=== PATIENT | female | born 1970 | race Caucasian/White ===

== ENCOUNTER → 2020-04-07 10:38 | Outpatient (BNVA) | payer OTHER, SELFPAY | PROVIDERS: PCP Internal Medicine; Visit Provider Obstetrics & Gynecology | DX: Z76.89 Persons encountering health services in other specified circumstances (principal) ==

== ENCOUNTER → 2020-10-07 10:04 | Outpatient (BNVA) | payer OTHER, SELFPAY | PROVIDERS: PCP Internal Medicine; Visit Provider Nurse Practitioner Family ==

== ENCOUNTER 2021-02-03 12:22 | Outpatient (REF) | payer OTHER, SELFPAY ==
--- NOTE | ~2021-02-03 | MM_ITS ---
EXAMINATION: MM SCREENING DIGITAL BREAST TOMOSYNTHESIS, BILATERAL CLINICAL INFORMATION: Screening. Asymptomatic. The lifetime risk of breast cancer based on the Tyrer-Cuzick Model is 5%. COMPARISON: Outside mammography: 03/28/2019, 03/07/2018 ([place]); 09/13/2011 TECHNIQUE: Digital breast tomosynthesis is performed in both the craniocaudal and mediolateral oblique views along with computer-aided detection (CAD). Synthesized 2D images are generated from the tomosynthesis. Additional right MLO view is provided. FINDINGS: There are scattered areas of fibroglandular density (ACR BI-RADS breast composition Category b). Parenchymal pattern is similar to prior studies. There is no developing density or interval mass or architectural abnormality. No abnormal calcifications. The axilla and skin contours are unremarkable. MM/MM tomosynthesis screening BI IMPRESSION: No mammographic evidence of malignancy. ASSESSMENT: BI-RADS 1: Negative RECOMMENDATION: Routine annual mammography screening. This patient's information was entered into a reminder system with a target due date for their next mammogram.
== END 2021-02-03 12:23 | disposition home or self-care (01) ==
LOC: HO.MAMMO 12:22
PROVIDERS: Visit Provider Obstetrics & Gynecology
DX: Z12.31 Encounter for screening mammogram for malignant neoplasm of breast (principal)
CPT/HCPCS: 77063; 77067

== ENCOUNTER → 2021-03-02 13:06 | Outpatient (BNVA) | payer OTHER, SELFPAY | PROVIDERS: PCP Internal Medicine; Visit Provider Advanced Practice Midwife ==

== ENCOUNTER → 2022-08-15 14:08 | Outpatient (BNVA) | payer OTHER, SELFPAY | PROVIDERS: PCP Internal Medicine; Visit Provider Advanced Practice Midwife | DX: Z01.419 Encounter for gynecological examination (general) (routine) without abnormal findings (principal); N89.8 Other specified noninflammatory disorders of vagina; E66.01 Morbid (severe) obesity due to excess calories; H04.123 Dry eye syndrome of bilateral lacrimal glands; Z68.41 Body mass index [BMI] 40.0-44.9, adult | CPT/HCPCS: 99212 ==

== ENCOUNTER 2022-12-01 15:46 | Outpatient (REF) | payer OTHER, SELFPAY | END 2022-12-01 15:47 | disposition home or self-care (01) | LOC: HO.MAMMO 15:46 | PROVIDERS: PCP Internal Medicine; Visit Provider Advanced Practice Midwife | DX: Z12.31 Encounter for screening mammogram for malignant neoplasm of breast (principal) | CPT/HCPCS: 77063; 77067 ==

== ENCOUNTER → 2022-12-01 16:00 | Outpatient (BNV) | payer OTHER, SELFPAY | PROVIDERS: PCP Internal Medicine; Visit Provider Radiology Diagnostic Radiology | DX: Z12.31 Encounter for screening mammogram for malignant neoplasm of breast (principal) | CPT/HCPCS: 77063; 77067 ==

== ENCOUNTER 2023-08-22 14:49 | Outpatient (REF) | payer OTHER, SELFPAY | END 2023-08-22 14:50 | disposition home or self-care (01) | LOC: HO.LAB 14:49 | PROVIDERS: Visit Provider Advanced Practice Midwife | DX: R35.0 Frequency of micturition (principal) | CPT/HCPCS: 81003; 87086 ==

== ENCOUNTER 2023-08-22 14:49 | Outpatient (AMB) | payer OTHER, SELFPAY ==
--- NOTE | 2023-08-22 14:56 | MHC.OFFVIS ---
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 She is doing well with concerns: frequency of urine, she feels like something is stuck inside, Estrace did not help with this symptom. She requests a refill on the oxybutynin. Attempting to eat a healthy diet with calcium and vitamin D and stays active with exercise walks an hour/day. Currently sexually active. Denies any vaginal dryness or irritation. Last pap smear; 2018. Hysterectomy in 2014 for fibroids. Last mammogram; 2022. Colonoscopy is UTD. Denies any family history of breast, ovarian or colon cancer. [facility] Medical History Morbid obesity with BMI of 40.0-44.9, adult Heart burn Urinary incontinence Surgical History H/O: hysterectomy Social History Alcohol intake: current Alcohol intake frequency: a few times a week Patient Tobacco Use Status: Never used Tobacco Sexual orientation: Straight/Heterosexual Gender identity: Female Female Reproductive History Menstrual Menopause type: surgical Total pregnancies: 1 Full term: 1 Number of Living Children: 1 Date of last pap smear: 09/24/18 (neg pap and hpv) Date of Mammogram: 12/01/22 ([facility]) Review of Systems Const All systems reviewed & are unremarkable except as noted in HPI and below Reports as per HPI Eyes Reports no additional complaints ENT Reports no additional complaints Card Reports no additional complaints Resp Reports no additional complaints GI Reports as per HPI and Reports no additional complaints Reports as per HPI Musc Reports no additional complaints Skin/Breast Reports as per HPI Neuro Reports no additional complaints Psych Reports no additional complaints Endo Reports no additional complaints Ramin/Lymph Reports no additional complaints Aller/Immun Reports no additional complaints Physical Exam Vital Signs: Last Vital Signs BP 106/70 08/22/23 14:57 BMI result Body Mass Index 39.9 Const General: cooperative, healthy appearing, no acute distress, well developed and alert Orientation/consciousness: patient oriented x3 HEENT Head: Yes normal to inspection Eyes General: appearance normal, both eyes and all related structures Neck Neck: Yes normal visual inspection Thyroid: Thyroid normal Chest Chest palpation & inspection: normal inspection of the chest and other (no puckering, dimpling, peau de orange, retraction, discharge, masses) Breast/axilla inspection: normal inspection of the breasts Breast/axilla palpation: normal palpation of the breasts Resp Effort & Inspection: normal respiratory effort GI Inspection: Yes normal to inspection Palpation (GI): Soft to palpation Rectal Exam - Female: deferred General: Yes bladder normal to palpation External Female Exam: normal external appearance and normal appearance of the urethra Speculum Exam - Vagina: normal appearance of the vagina, normal palpation and normal vaginal discharge Speculum Exam - Cervix: normal appearance of the cervix and Cervix absent (Vaginal cuff no lesions or nodules) Bimanual exam- vagina & uterus: normal bimanual exam, normal palpation, bladder normal to palpation and uterus absent Bimanual Exam- Adnexa, other: no masses Skin General skin exam: no rashes or lesions noted Rashes: no rashes Neuro General: patient oriented x3 Cognition (Neuro): normal cognition Extrem General: Yes normal to inspection Psych Attitude: cooperative Thought process: Normal thought process present Results AMB Urinalysis, Automated UA Leukoctes 1 Polo/uL Last Edit by JOANNA Clark on 08/22/23 15:55 UA Nitrite Negative Last Edit by JOANNA Clark on 08/22/23 15:55 UA Urobilinogen 0 mg/dL Last Edit by JOANNA Clark on 08/22/23 15:55 UA Protein 0 mg/dL Last Edit by JOANNA Clark on 08/22/23 15:55 UA pH 6.0 Last Edit by JOANNA Clark on 08/22/23 15:55 UA Blood 3 Oren/uL Last Edit by JOANNA Clark on 08/22/23 15:55 UA Specific Chauncey 1.015 Last Edit by JOANNA Clark on 08/22/23 15:55 UA Ketone Positive Last Edit by JOANNA Clark on 08/22/23 15:55 trace Leanna Lindsay 08/22/23 15:55 UA Bilirubin 0 mg/dL Last Edit by Leanna EnamoradoJOANNA hui on 08/22/23 15:55 UA Glucose 0 mg/dL Last Edit by Leanna Lindsay YOSVANYJose L on 08/22/23 15:55 Assessment & Plan Assessment & Plan (1) Encounter for well woman exam with routine gynecological exam: Code(s): Z01.419 - Encounter for gynecological examination (general) (routine) without abnormal findings (2) Vaginal dryness: Code(s): N89.8 - Other specified noninflammatory disorders of vagina (3) Urinary frequency: Code(s): R35.0 - Frequency of micturition Plan Discussed: Current recommendations for pap smears per ASCCP guidelines. Breast awareness, periodic self breast exams and yearly mammogram. Maintain a healthy lifestyle, well balanced diet including Calcium 1,200 mg and Vitamin D 600 IU daily, and routine exercise. Restart Estrace as needed, titrating dose discussed. Recommended trying some silicone rings/spacers for her partner and positioning to avoid deep penetration due to the shortening of the vaginal cuff canal in menopause. [facility] website information provided. Discussed risk with Estrace cream, contraindicated with any diagnosis of breast cancer, report any breast lumps juliet. Continue oxybutynin t.i.d. Plan urine dip today revealed hematuria specimen sent to the lab for culture. Patient verbalizes understanding and agrees to the plan of care. She was given opportunity to ask questions and all questions were answered to the best of my ability. RTO in 1 year for annual breakfast attendant exam. This note is constructed using voice recognition software. While every effort has been made to ensure accuracy, account services coordinator errors may have been included. Medications: Refilled estradiol 0.01%(0.1mg/gram) restart nightly x 2wks, then every other night x 2wks, then continue using twice a week. 0.5 appful vaginal 2XW 1 month 42.5 grams 4RF oxybutynin chloride 5 mg PO TID 90 tabs 12RF Coding Level of Care Code Est Pt Prev Care 40-64y(03214) Diagnoses Encounter for well woman exam with routine gynecological exam Z01.419 Vaginal dryness N89.8 Urinary frequency R35.0
[2023-08-22 14:57] VITALS: BP 106/70; BMI 39.9
== END 2023-08-22 15:52 | disposition home or self-care (01) ==
PROVIDERS: Visit Provider Advanced Practice Midwife
DX: Z01.419 Encounter for gynecological examination (general) (routine) without abnormal findings (principal); N89.8 Other specified noninflammatory disorders of vagina; R35.0 Frequency of micturition
CPT/HCPCS: 99396

== ENCOUNTER 2023-12-07 15:49 | Outpatient (REF) | payer OTHER, SELFPAY ==
--- NOTE | ~2023-12-07 | MM_ITS ---
EXAMINATION: MM SCREENING DIGITAL BREAST TOMOSYNTHESIS, BILATERAL CLINICAL INFORMATION: Screening. Asymptomatic. COMPARISON: Mammography: This study is compared with prior exams dating back to 2019. TECHNIQUE: Digital breast tomosynthesis is performed in both the craniocaudal and mediolateral oblique views along with computer-aided detection (CAD). Synthesized 2D images are generated from the tomosynthesis. FINDINGS: The breasts are almost entirely fatty (ACR BI-RADS breast composition Category a). There are no significant masses, abnormal calcifications, or other abnormalities. MM/MM tomosynthesis screening BI IMPRESSION: No mammographic evidence of malignancy. ASSESSMENT: BI-RADS BI-RADS 1 - Negative RECOMMENDATION: Routine annual mammography screening. 1 year F/U This examination should not preclude the clinical evaluation of a suspicious palpable abnormality. This patient's information was entered into a reminder system with a target due date for their next mammogram. Electronically signed by: Chanda Cormier MD 01/05/2024 04:05 PM EDT
== END 2023-12-07 15:50 | disposition home or self-care (01) ==
LOC: HO.MAMMO 15:49
PROVIDERS: PCP Internal Medicine; Visit Provider Internal Medicine
DX: Z12.31 Encounter for screening mammogram for malignant neoplasm of breast (principal)
CPT/HCPCS: 77063; 77067

== ENCOUNTER → 2023-12-07 16:00 | Outpatient (BNV) | payer OTHER, SELFPAY | PROVIDERS: PCP Internal Medicine; Visit Provider Radiology Diagnostic Radiology | DX: Z12.31 Encounter for screening mammogram for malignant neoplasm of breast (principal) | CPT/HCPCS: 77063; 77067 ==

== ENCOUNTER 2024-11-06 15:53 | Outpatient (AMB) | payer OTHER, SELFPAY ==
--- OUTSIDE RECORDS SUMMARY | 2024-06-12 09:00 | XMS_ITS ---
Author Organization [facility] [address] Address [address] [place] [address] Care Team Providers Care Bin Worker Name Role Phone ROB STEIN Unavailable [phone] REASON FOR VISIT bp f/u Encounters Encounter Location Date Provider Diagnosis [facility] [address] [address] 06/12/2024 ROB STEIN Plan Of Treatment No Information Progress Notes * Dima HARMANOB:1970 ( 54 yo F)Acc No.[id number]:06/12/2024 Progress Notes Patient: Enedina ARMENDARIZ Provider: Elvis STEIN PA-C :1970 A ge:54 Y S ex:Female Date:06/12/2024 Address: [address], [place] Subjective: * Chief Complaints: * 1 . Bp f/u. * Medical History: Objective: * Vitals: Assessment: Plan: * Treatment: * Images: Billing Information: * Visit Code: * Procedure Codes: Care Plan Details* * Electronic signature of DOUGLAS STEIN PA-C on 11/06/2024 at 04:18 PM EDT Sign off status: Pending * Provider: Elvis STEIN PA-C Date: 06/12/2024 Generated for Palak cummings/Farenee/eTransmitting on: 0 11/06/2024 04:18 PM EDT
--- NOTE | 2024-11-06 15:56 | A.OFFVIS_ITS ---
Vital Signs 11/06/24 16:00 Height 5 ft 1 in Weight 193 lb BMI 36.5 BP 106/72 Blood Pressure Location Rt brachial Position Sitting Intake Visit Reasons: Annual Intake Note: NO CONCERNS,DOES NOT WANT STD Manager Of Financial Required: No Information Interpreted: clinical only Accompanied by: Self / Same As Patient Allergies mold Allergy (Verified 11/06/24 15:57) mild Medication List - Last Reconciled 11/06/24 by Angela Armstrong LPN estradiol 0.01%(0.1mg/gram) 0.5 appful vaginal 2XW 1 month oxybutynin chloride 5 mg PO TID Is last menstrual period known: Yes Last menstrual period: 11/06/09 Post menopausal: No Patient : No Followed by:: Angela Armstrong LPN Do you need a note to return to daycare/school/sports/work: No HPI Comments Details: 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 Needs refill on Oxybuytin, stopped her Estr ana 6 months ago she did not feel she needed it. Currently sexually active. Denies any vaginal dryness or irritation. STI testing offered; she declines. Attempting to eat a healthy diet with calcium and vitamin D and stays active with exercise. Hysterectomy due to fibroids. Last mammogram; 2023. Colonoscopy is UTD. Denies any family history of breast, ovarian or colon cancer. [facility] Medical History (Updated 11/06/24 @ 16:20 by Jessie Lopez CNM) Vaginal atrophy Morbid obesity with BMI of 40.0-44.9, adult Heart burn Urinary incontinence Surgical History H/O: hysterectomy Social History Alcohol intake: current Alcohol intake frequency: a few times a week Patient Tobacco Use Status: Never used Tobacco Sexual orientation: Straight/Heterosexual Gender identity: Female Female Reproductive History Menstrual Age of Menarche: 9 Date of last menstrual period: 11/06/09 Menopause type: surgical Date of menopause: 11/06/09 Age of menopause: 39 Total pregnancies: 1 Number of Living Children: 1 Date of last pap smear: 09/24/18 History of abnormal pap smear: No Date of Mammogram: 12/07/23 History of abnormal mammogram: No Review of Systems Const All systems reviewed & are unremarkable except as noted in HPI and below Reports as per HPI Eyes Reports no additional complaints ENT Reports no additional complaints Card Reports no additional complaints Resp Reports no additional complaints GI Reports as per HPI and Reports no additional complaints Reports as per HPI Musc Reports no additional complaints Skin/Breast Reports as per HPI Neuro Reports no additional complaints Psych Reports no additional complaints Endo Reports no additional complaints Ramin/Lymph Reports no additional complaints Aller/Immun Reports no additional complaints Physical Exam Vital Signs: Last Vital Signs BP 106/72 11/06/24 16:00 BMI result Body Mass Index 36.5 Const General: cooperative, healthy appearing, no acute distress, well developed and alert Orientation/consciousness: patient oriented x3 HEENT Head: Yes normal to inspection Eyes General: appearance normal, both eyes and all related structures Neck Neck: Yes normal visual inspection Thyroid: Thyroid normal Chest Chest palpation & inspection: normal inspection of the chest and other (no puckering, dimpling, peau de orange, retraction, discharge, masses) Breast/axilla inspection: normal inspection of the breasts Breast/axilla palpation: normal palpation of the breasts Resp Effort & Inspection: normal respiratory effort GI Inspection: Yes normal to inspection Palpation (GI): Soft to palpation Rectal Exam - Female: deferred General: Yes bladder normal to palpation External Female Exam: normal external appearance and normal appearance of the urethra Speculum Exam - Vagina: normal appearance of the vagina, normal palpation, normal vaginal discharge and vagina atrophic Speculum Exam - Cervix: normal appearance of the cervix and Cervix absent (Vaginal cuff no lesions or nodules) Bimanual exam- vagina & uterus: normal bimanual exam, normal palpation, bladder normal to palpation and uterus absent Bimanual Exam- Adnexa, other: no masses Skin General skin exam: no rashes or lesions noted Rashes: no rashes Neuro General: patient oriented x3 Cognition (Neuro): normal cognition Extrem General: Yes normal to inspection Psych Attitude: cooperative Thought process: Normal thought process present Assessment & Plan Assessment & Plan (1) Encounter for well woman exam with routine gynecological exam: Code(s): Z01.419 - Encounter for gynecological examination (general) (routine) without abnormal findings Category: Medical Plan: Discussed: Current recommendations for pap smears per ASCCP guidelines. Breast awareness, periodic self breast exams and yearly mammogram. Maintain a healthy lifestyle, well balanced diet including Calcium 1,200 mg and Vitamin D 600 IU daily, and routine exercise. Oxybutynin refills sent in. Patient verbalizes understanding and agrees to the plan of care. She was given opportunity to ask questions and all questions were answered to the best of my ability. RTO in 1 year for annual auctioneer automobile exam. This note is constructed using voice recognition software. While every effort has been made to ensure accuracy, motel front desk attendant errors may have been included. (2) Vaginal atrophy: Code(s): N95.2 - Postmenopausal atrophic vaginitis Category: Medical Plan Counseled regarding the benefits of estrogen for atrophic vaginitis and urological conditions. Recommended restarting due to symptoms on exam, medication use and titration reviewed. Refill sent in. Advised to do self- breast exam and if any breast lump to report to the office as soon as possible for evaluation and discontinue the cream. The patient expressed understanding and agreement with the plan of care. All of her questions and concerns were addressed to the best of my ability. Medications: New estradiol 0.01%(0.1mg/gram) (Estrace) use nightly for two weeks, then twice a week 1 g vaginal 2XW 42.5 grams 2RF Refilled oxybutynin chloride 5 mg PO TID 90 tabs 12RF Discontinued estradiol 0.01%(0.1mg/gram) restart nightly x 2wks, then every other night x 2wks, then continue using twice a week. Discontinued Reason: Duplicate 0.5 appful vaginal 2XW 1 month 42.5 grams 4RF Coding Level of Care Code Est Pt Prev Care 40-64y(69978) Diagnoses Encounter for well woman exam with routine gynecological exam Z01.419 Vaginal atrophy N95.2
[2024-11-06 16:00] VITALS: BP 106/72; BMI 36.5
--- OUTSIDE RECORDS SUMMARY | 2024-11-06 16:18 | XMS_ITS | Clinical Summary ---
Author Organization [address] Address [address] [place] [phone] Phone Care Team Providers Care Keg Raiser Name Role Phone Kita Sepulveda Primary Care Provider + Allergies No known active allergies Medications oxyBUTYnin (DITROPAN) 5 mg tablet Active mv,deep,min/iron/ folic acid/lut (COMPLETE MULTI ORAL) Take 1 tablet by mouth 1 (one) time each day. Active Active Problems Problem Noted Date Diagnosed Date Dysmenorrhea 04/13/2024 Obstructive sleep apnea 04/06/2018 Overview (04/13/2024): [facility] Home Polysomnogram: Date 04/01/2018; AHI 6, Unclassified apneas 0; Obstructive apneas 0; Central apneas 1; Mixed apneas 0; hypopneas 28; average oxygen saturation 95% (lowest 80% with saturations <88% for 5% or more of study) - Obstructive Sleep Apnea - mild; mostly hypopneas; with sleep related hypoventilation by 2018 home polysomnogram. Rotator cuff tendonitis 11/11/2014 Morbid obesity (CMS/HCC V24, CMS/HCC V28) 2012 Constipation 02/07/2013 GERD (gastroesophageal reflux disease) 3 Overview (04/13/2024): Hx of H pylori infection s/p treatment, follows with GI. Dr[facility]. Immunizations Name Administration Dates Next Due Tdap Tetanus diptheria acell ular pertussis (Boostrix; Adacel) 7yo and older 06/03/2022,10/23/2013 Surgical History Surgery Date Site/Laterality Comments SECTION PROCEDURE: HISTORICAL DELIVERY ROBOTIC ASSISTED HYSTERECTOMY 04/08/14 PROCEDURE: HISTORICAL ROBOTIC HYSTERECTOMY WITH OR WITHOUT BSO; COMMENT: Dr. Dill; TL[facility], bilateral salpingectomy. Medical History Medical History Date Comments GERD (gastroesophageal reflux disease) 3 DX:GERD (gastroesophageal reflux disease); COMMENT: Hx of H pylori infection s/p treatment, follows with GI. Dr[facility]. Fibroid uterus DX:Fibroid uteru s Dysmenorrhea DX:Dysmenorrhea Obesity DX:Obesity Anxiety DX:Anxiety Family History Medical History Relation Name Comments Other: over active thyroid Aunt Other: no info on father's side of family Father Stroke Maternal Grandfather at age 65 Hypertension Mother Thyroid disease Mother low thyroid Breast cancer Neg Hx Relation Name Status Comments Aunt Father Maternal Grandfather Mother Social History Tobacco Use Types Packs/Day Years Used Date Smoking Tobacco: Never Smokeless Tobacco: Never Alcohol Use Standard Drinks/Week Comments Yes 0.8 (1 standard drink = 0.6 oz p ure alcohol) Interpersonal Safety Answer Date Record ed Physical Abuse 07/08/2024 Verbal Abuse 07/08/2024 Comments No Sex and Gender Information Value Date Recorded Sex Assigned at Female 07/07/2024 9:27 AM EDT Legal Sex Female 6:09 PM EST Gender Identity Female 07/07/2024 9:27 AM EDT Sexual Orientation Straight 07/07/2024 9: 27 AM EDT Obstetrics History Last Filed Vital Signs Vital Sign Reading Time Taken Comments Blood Pressure 137/89 07/08/2024 2:26 PM EDT Pulse 66 07/08/2024 2:26 PM EDT Temperature 35.8 C (96.5 F) 07/08/2024 1:25 PM EDT Respiratory Rate 20 07/08/2024 2:26 PM EDT Oxygen Saturation 98% 07/08/2024 2:26 PM EDT Inhaled Oxygen Concentration - - Weight 79.4 kg (175 lb) 06/30/2024 3:00 PM EDT Height 154.9 cm (5' 1 ) 06/30/2024 3:00 PM EDT Body Mass Index 33.07 06/30/2024 3:00 PM EDT Plan of Treatment Health Maintenance Due Date Last Done Comments Hepatitis B Vaccines (1 of 3 - 19+ 3-dose series) 1988 Cervical Cancer Screening: P ap Smear 03/07/2019 03/07/2016, 03/10/2013 Pneumococcal Vaccine: 50+ Years (1 of 1 - PCV) 2019 Zoster Vaccines (1 of 2) 2019 Breast Cancer Screening 03/28/2021 03/28/20 19, 03/07/2018, 10/06/2016 Depression Screening 04/01/2022 HIV Screening 04/01/2022 Hepatitis C Screening 04/01/2022 Social Influencers of Health Screening 04/01/2022 COVID-19 Vaccine (3 - 2023-2 5 season) 2023 10/02/2020, 09/11/2020 Influenza Vaccine (#1) 2024 Cholesterol Screening (Lipid Panel) 04/11/2029 04/11/2024, 03/07/2018 DTaP,Tdap,and Td Vaccines (3 - Td or Tdap) 06/03/2032 06/03/2022, 10/23/2013 Colorectal Cancer Screening: Colonoscopy 07/08/2034 07/08/2024 HIB Vaccines Aged Out No longer eligi ble based on patient's age to complete this topic HPV Vaccines Aged Out No longer eligi ble based on patient's age to complete this topic Hepatitis A Vaccines Aged Out No long er eligible based on patient's age to complete this topic IPV Vaccines Aged Out No longer eligi ble based on patient's age to complete this topic MMR Vaccines Aged Out No longer eligi ble based on patient's age to complete this topic Meningococcal ACWY Vaccine Aged Out N o longer eligible based on patient's age to complete this topic Meningococcal B Vaccine Aged Out No l onger eligible based on patient's age to complete this topic RSV Immunization Patients Under 20 months Aged Out No longer eligible b ased on patient's age to complete this topic Varicella Vaccines Aged Out No longer eligible based on patient's age to complete this topic Procedures Procedure Name Priority Date/Time Associated Diagnosis Comments COLONOSCOPY Routine 07/08/2024 2:05 PM EDT Colon cancer screening LIPID PANEL WITH REFLEX TO DIRECT LDL Routine 04/11/2024 10:42 AM EST Routine medical exam Vitamin D deficiency disease Screening for lipoid disorders Screening for thyroid disorder Screening for diabetes mellitus SCR MAMMO BI INCL CAD Routine 03/28/2019 3:41 PM EST Encounter for other screening for malignant neoplasm of breast HM PAP SMEAR Routine 03/07/2016 from Last 3 Months or Most Recently Relevant to Health Maintenance Results * COLONOSCOPY Anesthesia - MAC; [facility] ENDOSCOPY (07/08/2024 2:05 PM EDT) Anatomical Region Laterality Modality Endoscopy 07/08/2024 1:43 PM EDT Impressions 07/08/2024 2:06 PM EDT - Diverticulosis in the left colon. - The examination was otherwise normal on direct and retroflexion views. - No specimens collected. Recommendation: - Patient has a contact number available for emergencies. The signs and symptoms of potential delayed complications were discussed with the patient. Return to normal activities tomorrow. Written discharge instructions were provided to the patient. - Resume previous diet. - Continue present medications. - Repeat colonoscopy in 10 years for screening purposes. Narrative 07/08/2024 2:06 PM EDT [facility] GI Patient Name: Enedina Harman Procedure Date: 07/08/2024 1:43 PM Date of : 1970 Age: 54 Room: ROOM 16 Gender: Female Note Status: Finalized Attending MD: Ron Teran MD, Procedure Date No Time: 07/08/2024 Procedure: Colonoscopy Indications: Screening for colorectal malignant neoplasm Providers: Ron Teran MD Referring MD: Ron Teran MD Medicines: Monitored Anesthesia Care Complications: No immediate complications. Estimated Blood Loss: Estimated blood loss: none. Procedure: After I obtained informed consent, the scope was passed under direct vision. Throughout the procedure, the patient's blood pressure, pulse, and oxygen saturations were monitored continuously. The Olympus Pediatric Colonoscope was introduced through the anus and advanced to the cecum, identified by appendiceal orifice and ileocecal valve. The colonoscopy was performed without difficulty. The patient tolerated the procedure well. The quality of the bowel preparation was good. Findings: A few medium-mouthed diverticula were found in the left colon. The exam was otherwise without abnormality on direct and retroflexion views. Procedure Code(s): --- Professional --- G0121, Colorectal cancer screening; colonoscopy on individual not meeting criteria for high risk Diagnosis Code(s): --- Professional --- K57.30, Diverticulosis of large intestine without perforation or abscess without bleeding Z12.11, Encounter for screening for malignant neoplasm of colon CPT copyright 2020 [employer]. All rights reserved. The codes documented in this report are preliminary and upon postdoctoral research associate review may be revised to meet current compliance requirements. MD Ron Manjarrez MD 07/08/2024 2:06:25 PM This report has been signed electronically.Ron Teran MD Number of Addenda: 0 Note Initiated On: 07/08/2024 1:43 PM Scope In: Scope Out: Endoscopy Department at [facility] - [address] [place] [id number] Procedure Note Ron Teran MD - 07/08/2024 [facility] GI Patient Name: Enedina Harman Procedure Date: 07/08/2024 1:43 PM Date of : 1970 Age: 54 Room: ROOM 16 Gender: Female Note Status: Finalized Attending MD: Ron Teran MD, Procedure Date No Time: 07/08/2024 Procedure: Colonoscopy Indications: Screening for colorectal malignant neoplasm Providers: Ron Teran MD Referring MD: Ron Teran MD Medicines: Monitored Anesthesia Care Complications: No immediate complications. Estimated Blood Loss: Estimated blood loss: none. Procedure: After I obtained informed consent, the scope was passed under direct vision. Throughout theprocedure, the patient's blood pressure, pulse, and oxygen saturations were monitored continuously. TheOlympus Pediatric Colonoscope was introduced through theanus and advanced to the cecum, identified byappendiceal orifice and ileocecal valve. The colonoscopy was performed without difficulty. The patient tolerated the procedure well. The quality of the bowel preparation was good. Findings: A few medium-mouthed diverticula were found in the left colon. The exam was otherwise without abnormality ondirect and retroflexion views. Procedure Code(s): --- Professional --- G0121, Colorectal cancer screening; colonoscopy on individual not meeting criteria for high risk Diagnosis Code(s): --- Professional --- K57.30, Diverticulosis of large intestine without perforation or abscess without bleeding Z12.11, Encounter for screening for malignantneoplasm of colon CPT copyright 2020 [employer]. All rights reserved. The codes documented in this report are preliminary and upon postdoctoral research associate reviewmay be revised to meet current compliance requirements. MD Ron Manjarrez MD 07/08/2024 2:06:25 PM This report has been signed electronically.Ron Teran MD Number of Addenda: 0 Note Initiated On: 07/08/2024 1:43 PM Scope In: Scope Out: Endoscopy Department at [facility] - [address] [place] [id number] IMPRESSION: - Diverticulosis in the left colon. - The examination was otherwise normal on directand retroflexion views. - No specimens collected. Recommendation: - Patient has a contact number available for emergencies. The signs and symptoms of potential delayed complications were discussed with thepatient. Return to normal activities tomorrow. Written discharge instructions were provided to thepatient. - Resume previous diet. - Continue present medications. - Repeat colonoscopy in 10 years for screening purposes. Ron Teran MD GI~PROCEDURE ORDERABLES Final R esult * (ABNORMAL) Lipid panel with reflex to direct LDL (04/11/2024 10:42 AM EST) Cholesterol 201(H) 0 - 200 mg/dL LAB CHEMISTRY METHOD 04/11/2024 2:15 PM EST [facility] Triglycerides 65 0 - 150 mg/dL LAB CHEMISTRY METHOD 04/11/2024 2:15 PM EST [facility] HDL 71 >=40 mg/dL LAB CHEMISTRY METHOD 04/11/2024 2:15 PM EST [facility] LDL Calculated 117(H) 0 - 100 mg/dL LAB CHEMISTRY METHOD 04/11/2024 2:15 PM EST [facility] VLDL Cholesterol Deep 13 mg/dL LAB CHEMISTRY METHOD 04/11/2024 2:15 PM EST [facility] Non HDL Chol. (LDL+VLDL) 130 <145 mg/dL LAB CHEMISTRY METHOD 04/11/2024 2:15 PM EST [facility] Chol/HDL Ratio 2.8 0.0 - 4.4 LAB CHEMISTRY METHOD 04/11/2024 2:15 PM EST [facility] Blood Venous blood specimen / Unknown Venipuncture / Unknown 04/11/2024 10:42 AM EST 04/11/2024 12:31 PM EST us Kita ALFONSO LAB BLOOD ORDERABLES Fin al Result [facility] [address] [place] [address], * SCR MAMMO BI INCL CAD (03/28/2019 3:41 PM EST) Anatomical Region Laterality Modality Radiographic Esthela ging 03/07/2018 5:00 PM EST Narrative 03/30/2019 3:20 PM EST This is a summary report. The complete report is available in the patient's medical record. If you cannot access the medical record, please contact the sending organization for a detailed fax or copy. Exam: Screening mammogram Findings: Digital bilateral full-field screening mammography is performed and interpreted with the aid of computer-aided detection. Comparison is made with 03/07/2018 and as far back as 07/18/2013. Breast parenchyma is composed of scattered fibroglandular densities. No new suspicious mass, architectural distortion, or suspicious calcifications. Impression: No mammographic evidence of malignancy. BI-RADS 1 - negative [] 5 year breast cancer risk assessment 0.8 % Lifetime breast cancer risk assessment 8.2 % Breast cancer risk category Low (<15%) Procedure Note Elimra Prather MD - 04/11/2022 This is a summary report. The complete report is available in thepatient's medical record. If you cannot access the medical record, pleasecontact the sending organization for a detailed fax or copy. Exam: Screening mammogram Findings: Digital bilateral full-field screening mammography is performedand interpreted with the aid of computer-aided detection. Comparison ismade with 03/07/2018 and as far back as 07/18/2013. Breast parenchyma is composed of scattered fibroglandular densities. Nonew suspicious mass, architectural distortion, or suspiciouscalcifications. Impression: No mammographic evidence of malignancy. BI-RADS 1 - negative [] 5 year breast cancer risk assessment 0.8 % Lifetime breast cancer risk assessment 8.2 % Breast cancer risk category Low (<15%) Kal Dill MD IMG XR PROCEDURES Final Result * Pap Smear (03/07/2016) Pap smear no interpretation , abstracted Historical Provider HEALTH MAINTENANCE Final Result from Last 3 Months or Most Recently Relevant to Health Maintenance [place] [phone] [employer] Care Teams Keg Raiser Relationship Specialty Start Date End Date Kita Sepulveda PA [address] [place] [phone] PCP - General 05/21/24
== END 2024-11-06 16:19 | disposition home or self-care (01) ==
LOC: HO.HWS 15:53
PROVIDERS: PCP Internal Medicine; Visit Provider Advanced Practice Midwife
DX: Z01.419 Encounter for gynecological examination (general) (routine) without abnormal findings (principal); N95.2 Postmenopausal atrophic vaginitis
CPT/HCPCS: 99396; 99459

== ENCOUNTER 2025-03-05 16:19 | Outpatient (REF) | payer OTHER, SELFPAY ==
--- OUTSIDE RECORDS SUMMARY | 2024-03-11 09:15 | XMS_ITS ---
Author Organization [facility] [address] Address [address] [place] [address] Care Team Providers Care Cut Off Sawyer Name Role Phone ROB STEIN Unavailable [phone] Encounters Encounter Location Date Provider Diagnosis [facility] [address] [place] [address] 03/11/2024 ROB STEIN Plan Of Treatment Next Appt Details Provider Name:ROB Morales, 2025 08:00:00 AM, [address], [address], [place], [address], Progress Notes * KIMANIDimaOB:1970 ( 54 yo F)Acc No.[id number]:03/11/2024 Progress Notes Patient: Enedina Chaves Provider: Elvis STEIN PA-C :1970 A ge:53 Y S ex:Female Date:03/11/2024 Address: [address], [id number] * Electronic signature of DOUGLAS STEIN PA-C on 03/05/2025 at 06:50 PM EST Sign off status: Pending * Provider: Elvis STEIN PA-C Date: 05/11/2023 Generated for Palak cummings/Jimmy/eTransmitting on: 05/05/2024 06:50 PM EST
--- OUTSIDE RECORDS SUMMARY | 2024-06-12 08:00 | XMS_ITS ---
Author Organization [facility] [address] Address [address] [place] [address] Care Team Providers Care Java Technical Manager Name Role Phone ROB STEIN Unavailable [phone] REASON FOR VISIT bp f/u Encounters Encounter Location Date Provider Diagnosis [facility] [address] [place] [address] 06/12/2024 ROB STEIN Plan Of Treatment Next Appt Details Provider Name:ROB Morales, 2025 08:00:00 AM, [address], [address], [place], [address], Progress Notes * Dima HARMANOB:1970 ( 54 yo F)Acc No.[id number]:06/12/2024 Progress Notes Patient: Enedina Chaves Provider: Elvis STEIN PA-C :1970 A ge:54 Y S ex:Female Date:06/12/2024 Address: [address] [id number] Subjective: * Chief Complaints: * B p f/u Care Plan Details* * Electronic signature of DOUGLAS STEIN PA-C on 03/05/2025 at 06:50 PM EST Sign off status: Pending * Provider: Elvis STEIN PA-C Date: 0 06/12/2024 Generated for Palak cummings/Jimmy/eTransmitting on: 1 05/05/2024 06:50 PM EST
--- OUTSIDE RECORDS SUMMARY | 2025-03-05 18:50 | XMS_ITS | Patient Health Record ---
Author Organization [facility] [address] Address [address] [place] [address] Care Team Providers Care Merchandise Flow Associate Name Role Phone ROB STEIN [phone] Allergies Allergen (clinical drug ingredient) Drug/Non Drug Allergy documented on EMR Reaction Allergy Type Onset Date Status Mold Unknown Allergy Active Results Component Value Reference Range Flag Notes CBC WITH AUTO DIFFERENTIAL Reviewed date:04/11/2024 01:59:42 PM Interpretation: Performing Lab: Notes/Report: WBC 5.6 4.8-10.8 K/mcL RBC 4.10 3.80-4.80 M/mcL Hemoglobin 12.7 11.5-16.0 g/dL Hematocrit 39.3 35.0-47.0 % MCV 94.9 79.0-98.0 FL MCH 30.7 27.0-32.0 pcg MCHC 32.3 32.0-37.0 g/dL RDW 13.5 11.0-15.0 % Platelets 213 130-400 K/mcL MPV 10.1 7.0-11.0 FL NRBC 0.0 <1.0 % NRBC Absolute 0.00 <0.10 K/mcL Neutrophils Relative 49.2 Lymphocytes Relative 39.7 Monocytes Relative 6.8 Eosinophils Relative 2.5 Basophils Relative 1.4 Immature Granulocytes Relative 0.4 Neutrophils Absolute 2.77 1.50-7.00 K/mcL Lymphocytes Absolute 2.23 1.00-5.00 K/mcL Monocytes Absolute 0.38 0.20-1.00 K/mcL Eosinophils Absolute 0.14 0.00-0.50 K/mcL Basophils Absolute 0.08 0.00-0.20 K/mcL Immature Granulocytes Absolute 0.02 0.00-0.03 K/mcL LIPID PANEL WITH REFLEX TO D IRECT LDL Reviewed date:04/11/2024 02:27:46 PM Interpretation: Performing Lab: Notes/Report: Cholesterol 201 0-200 mg/dL H Triglycerides 65 0-150 mg/dL HDL 71 >=40 mg/dL LDL Calculated 117 0-100 mg/dL H VLDL Cholesterol Brian 13 Non HDL Chol. (LDL+VLDL) 130 <145 mg/dL Chol/HDL Ratio 2.8 0.0-4.4 VITAMIN D 25 HYDROXY Reviewed date:04/11/2024 02:08:03 PM Interpretation: Performing Lab: Notes/Report: Vit D, 25-Hydroxy 33.1 30.0-80.0 ng/mL COMPREHENSIVE METABOLIC PANE L Reviewed date:04/11/2024 02:27:40 PM Interpretation: Performing Lab: Notes/Report: Sodium 140 133-145 mmol/L Potassium 4.8 3.5-5.5 mmol/L Chloride 108 96-110 mmol/L CO2 30 21-32 mmol/L Anion Gap 2 3-11 L Glucose 72 70-100 mg/dL BUN 22 5-25 mg/dL Creatinine 0.73 0.50-1.10 mg/dL eGFR 98 >=60 mL/min/1.73m2 Calcul ation based on the?Chronic Kidney Disease Epidemiology Collaboration (CKD-EPI) equation refit?without adjustment for race. BUN/Creatinine Ratio 30.1 Calcium 9.0 8.5-10.5 mg/dL AST (SGOT) 19 10-42 unit/L ALT (SGPT) 24 10-60 unit/L Alkaline Phosphatase 46 42-121 unit/L Total Protein 6.4 6.0-8.0 g/dL Albumin 3.8 3.2-5.0 g/dL Total Bilirubin 0.7 0.0-1.4 mg/dL THYROID STIMULATING HORMONE WITH REFLEX TO FREE T4 AND FREE T3 Reviewed date:04/11/2024 02:07:59 PM Interpretation: Performing Lab: Notes/Report: TSH 1.27 0.40-4.00 mcIU/mL HEMOGLOBIN A1C Reviewed date:04/12/2024 09:00:28 AM Interpretation: Performing Lab: Notes/Report: Hemoglobin A1C 4.9 <6.5 % Mean Bld Glu Estim. 94 Reason For Referral Reason Ena GI; colonosc opy Diagnosis 1 Colon cancer screeni (Z12.11) Referral Organization [facility] [address] Referring Provider First Name ROB Referring Provider Last Name EMIL Referring Provider Speciality Preventive Medicine Referred Provider Chacho Sarah Referred Provider Specialty Gastroentero logy General Notes [phone] , (p) [phone], (f) [phone] Clinical Notes Brunilda Zuniga 03:36:28 PM > referral sentKiet Redena 05/28/2024 02:54:03 PM > Scheduled for 07/08/24. Pt aware Referral Priority Routine Medications Medication SIG (Take, Route, Frequency, Duration) Notes Start Date End Date Status Multi Complete - Capsule as directed Orally Active oxyBUTYnin Chloride 5 MG Tablet 1 tablet Orally Once a day A ctive CeleBREX 100 MG Capsule 1 capsule with f ood Orally twice daily; Duration: 15 days 06/02/2024 Active Social History Social History Drugs/Alcohol: Social Info Question Answer Notes Alcohol Screen (Audit-C) Did you have a drink containing alcohol in the past year? Yes How often did you have a drink containing alcohol in the past year? 4 or more times a week (4 points) How many drinks did you have on a typical day when you were drinking in the past year? 5 or 6 drinks (2 points) How often did you have 6 or more drinks on one occasion in the past year? 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 ETOH Use: 1-2 drinks/week Tob Use: Denies Recreational drug Use: Denies Problems Problem Type SNOMED Code ICD Code Onset Dates Problem Status W/U Status Risk Notes Problem Vitamin D deficiency (93052911) Vitamin D deficiency, unspecified (E55.9) Active confirmed Problem Overactive bladder (000672323) Overactive bladder (N32.81) Active confirmed Problem Colon cancer screeni ng (956422314) Colon cancer screening (Z12.11) Active confirmed Problem Annual health maintenance examination (00414730) Annual physical exam (Z00.00) Active confirmed Problem Elevated blood press ure reading without diagnosis of hypertension (181860394) Elevated BP without diagnosis of hypertension (R03.0) Active confirmed Problem Pain in limb (40941027) Pain of left upper extremity (M79.602) Active confirmed Problem Pure hypercholesterolemia (980860161) Elevated LDL cholesterol level (E78.00) Active confirmed Problem Uterine leiomyoma (05463813) History of uterine fibroid (Z86.018) Active confirmed Problem History of hysterect volodymyr (866556182) History of hysterectomy (Z90.710) Active confirmed Vital Signs Heart Rate 63 /min 05/20/2024 Oximetry 99 % 05/20/2024 Blood pressure diastolic 90 mm Hg 05/20/2024 Height 61 in 05/20/2024 Blood pressure systolic 150 mm Hg 05/20/2024 Weight 196 lbs 05/20/2024 BMI 37.03 kg/m2 05/20/2024 Encounters Encounter Location Date Provider Diagnosis [facility] [address] [address] 04/11/2024 ROB STEIN Overactive bladder N32.81 and History of hysterectomy Z90.710 [facility] [address] [address] 05/20/2024 ROB STEIN Annual physical exam Z00.00 ; Elevated LDL cholesterol level E78.00 ; Pain of left upper extremity M79.602 ; Elevated BP without diagnosis of hypertension R03.0 ; Overactive bladder N32.81 and Colon cancer screening Z12.11 [facility] [address] [address] 05/28/2024 ROB STEIN [facility] [address] [address] 06/02/2024 ROB STEIN Assessments Encounter Date Diagnosis (ICD Code) Assessment Notes Treatment Notes Treatment Clinical Notes Section Notes 04/11/2024 Overactive bladder (ICD-10 - N32.81) Enedina is a 53-year-old female with a PMH of uterine fibroids s/p hysterectomy (2013) that presents today to establish care as a new patient. #Labs: Baseline laboratory evaluation including CBC, CMP, lipid panel, hemoglobin A1c, TSH, and vitamin D ordered to be evaluated at time of CPE. #Overactive bladder: Patient s/p hysterectomy 2013 after which she developed overactive bladder. Takes oxybutynin 5mg once daily with adequate control of symptoms. No currently urinary symptoms including dysuria, increased urinary frequency, hematuria, low back pain, incontinence, etc. All questions answered to the patient's satisfaction. Patient demonstrates understanding of diagnosis and treatments discussed. Follow-up in 4 weeks for CPE with lab review, sooner should any questions/concerns arise. Case discussed with collaborating physician Edwin Perez who has reviewed the assessment/plan. Chart, medications, labs, and vital signs reviewed. Dictation completed with the use of [employer] voice recognition software, prone to medical misidentifications and grammatical errors. All errors are unintentional. Although the practitioner does try to identify and correct errors, some may be present. Please do not hesitate to contact the practitioner for clarification. 04/11/2024 History of hysterectomy (ICD-10 - Z90.710) Enedina is a 53-year-old female with a PMH of uterine fibroids s/p hysterectomy (2013) that presents today to establish care as a new patient. #Labs: Baseline laboratory evaluation including CBC, CMP, lipid panel, hemoglobin A1c, TSH, and vitamin D ordered to be evaluated at time of CPE. #Overactive bladder: Patient s/p hysterectomy 2013 after which she developed overactive bladder. Takes oxybutynin 5mg once daily with adequate control of symptoms. No currently urinary symptoms including dysuria, increased urinary frequency, hematuria, low back pain, incontinence, etc. All questions answered to the patient's satisfaction. Patient demonstrates understanding of diagnosis and treatments discussed. Follow-up in 4 weeks for CPE with lab review, sooner should any questions/concerns arise. Case discussed with collaborating physician Edwin Perez who has reviewed the assessment/plan. Chart, medications, labs, and vital signs reviewed. Dictation completed with the use of [employer] voice recognition software, prone to medical misidentifications and grammatical errors. All errors are unintentional. Although the practitioner does try to identify and correct errors, some may be present. Please do not hesitate to contact the practitioner for clarification. 05/20/2024 Annual physical exam (ICD-10 - Z00.00) Enedina is a 53-year-old female with a PMH of overactive bladder that presents today for annual CPE. #Labs: Baseline laboratory evaluation including CBC, CMP, lipid panel, hemoglobin A1c, TSH, and vitamin D drawn 04/11/24, reviewed today. #Elevated cholesterol: Lipid panel drawn 04/11/2024 reveals mildly elevated total cholesterol at 201 and LDL at 117. Patient is educated that lifestyle changes including increasing physical activity and dietary changes can aid in decreasing cholesterol levels. Recommending a diet rich in fruits, vegetables, fiber, and healthy fats such as those found in fish and nuts. Limit sugar, processed foods, fried foods, alcohol, red meat, and unhealthy fats such as trans fats and saturated fat. Consider fish oil supplement. #Left upper extremity pain: Patient presents with concern for left upper arm pain. States she was lifting a tote around [facility] after which she felt she strained a muscle. Since experiencing pain and mild weakness. On exam ROM of the left upper extremity appears unaffected. Neurovascular intact. Strength is mildly diminished when compared to the right side. There is also a palpable bump on the anterior surface distal to the AC joint. Discussed DDx which includes muscle strain versus bicep tendon rupture. Distal bicep tendon attachment at the elbow is palpable, however given palpable bulge and mild weakness on exam plan to proceed with MRI without contrast to rule out biceps tendon rupture. Discussed referral to orthopedics, patient would like to await MRI result prior to establishing care. Will send Rx for Celebrex 100 mg twice daily to treat discomfort/inflammati on. Reviewed proper use and side effects including but not limited to GI upset. Patient is encouraged to continue gentle stretching and use of topical ice/heat as needed for pain. #Elevated BP: BP in office elevated at 150/90. Patient reports she has an automatic BP cuff available to her at home. Patient is encouraged to take home BPs twice daily and record measurements. Reviewed proper home BP measuring technique. Plan to follow-up in 3 weeks to assess measurements. Consider antihypertensive should systolic pressures remain consistently greater than 140 or diastolic consistently greater than 90. #Overactive bladder: PMH of uterine fibroids s/p hysterectomy 2013 after which she developed overactive bladder. Takes oxybutynin 5mg once daily with adequate control of symptoms. No currently urinary symptoms including dysuria, increased urinary frequency, hematuria, low back pain, incontinence, etc. Patient seen and examined. Comprehensive discussion was done on the followin. Discussed the importance of a diet rich in fruit, vegetables, legumes and healthy fats. Patient advised to avoid processed food and carbohydrates, added sugars, and saturated/trans fats. When possible, prepare your own meals and avoid fast food. Read nutrition labels - avoid ingredients including high fructose corn syrup and preservatives. Be contentious of daily calorie intake and weight. 2. Discussed the importance of regular physical activity. Recommended a goal 6-10k steps or 30 minutes of walking per day. Discussed the benefit of weight-bearing exercise and strength training with proper body mechanics/safety precautions. Other activities including cycling, hiking, etc. are recommended and encouraged. Patient advised to seek medical attention for any SOB, chest pain, muscle or joint pain associated with exercise. 3. Discussed risks and benefits of age-appropriate screening guidelines including but not limited to colonoscopy (referred today), mammogram, breast examinations, and PAP smears. 4. Discussed safe driving, utilization of seat belts, and the importance of refraining from smartphone while driving. 5. Age-appropriate immunizations were discussed including but not limited to Shingles vaccine, COVID, flu vaccine, etc. All questions answered to the patient's satisfaction. Patient demonstrates understanding of diagnosis and treatments discussed. Follow-up in 4 weeks for CPE with lab review, sooner should any questions/concerns arise. Case discussed with collaborating physician Edwin Perez who has reviewed the assessment/plan. Chart, medications, labs, and vital signs reviewed. Dictation completed with the use of [employer] voice recognition software, prone to medical misidentifications and grammatical errors. All errors are unintentional. Although the practitioner does try to identify and correct errors, some may be present. Please do not hesitate to contact the practitioner for clarification. 05/20/2024 Elevated LDL cholesterol level (ICD-10 - E78.00) Enedina is a 53-year-old female with a PMH of overactive bladder that presents today for annual CPE. #Labs: Baseline laboratory evaluation including CBC, CMP, lipid panel, hemoglobin A1c, TSH, and vitamin D drawn 04/11/24, reviewed today. #Elevated cholesterol: Lipid panel drawn 04/11/2024 reveals mildly elevated total cholesterol at 201 and LDL at 117. Patient is educated that lifestyle changes including increasing physical activity and dietary changes can aid in decreasing cholesterol levels. Recommending a diet rich in fruits, vegetables, fiber, and healthy fats such as those found in fish and nuts. Limit sugar, processed foods, fried foods, alcohol, red meat, and unhealthy fats such as trans fats and saturated fat. Consider fish oil supplement. #Left upper extremity pain: Patient presents with concern for left upper arm pain. States she was lifting a tote around [facility] after which she felt she strained a muscle. Since experiencing pain and mild weakness. On exam ROM of the left upper extremity appears unaffected. Neurovascular intact. Strength is mildly diminished when compared to the right side. There is also a palpable bump on the anterior surface distal to the AC joint. Discussed DDx which includes muscle strain versus bicep tendon rupture. Distal bicep tendon attachment at the elbow is palpable, however given palpable bulge and mild weakness on exam plan to proceed with MRI without contrast to rule out biceps tendon rupture. Discussed referral to orthopedics, patient would like to await MRI result prior to establishing care. Will send Rx for Celebrex 100 mg twice daily to treat discomfort/inflammati on. Reviewed proper use and side effects including but not limited to GI upset. Patient is encouraged to continue gentle stretching and use of topical ice/heat as needed for pain. #Elevated BP: BP in office elevated at 150/90. Patient reports she has an automatic BP cuff available to her at home. Patient is encouraged to take home BPs twice daily and record measurements. Reviewed proper home BP measuring technique. Plan to follow-up in 3 weeks to assess measurements. Consider antihypertensive should systolic pressures remain consistently greater than 140 or diastolic consistently greater than 90. #Overactive bladder: PMH of uterine fibroids s/p hysterectomy 2013 after which she developed overactive bladder. Takes oxybutynin 5mg once daily with adequate control of symptoms. No currently urinary symptoms including dysuria, increased urinary frequency, hematuria, low back pain, incontinence, etc. Patient seen and examined. Comprehensive discussion was done on the followin. Discussed the importance of a diet rich in fruit, vegetables, legumes and healthy fats. Patient advised to avoid processed food and carbohydrates, added sugars, and saturated/trans fats. When possible, prepare your own meals and avoid fast food. Read nutrition labels - avoid ingredients including high fructose corn syrup and preservatives. Be contentious of daily calorie intake and weight. 2. Discussed the importance of regular physical activity. Recommended a goal 6-10k steps or 30 minutes of walking per day. Discussed the benefit of weight-bearing exercise and strength training with proper body mechanics/safety precautions. Other activities including cycling, hiking, etc. are recommended and encouraged. Patient advised to seek medical attention for any SOB, chest pain, muscle or joint pain associated with exercise. 3. Discussed risks and benefits of age-appropriate screening guidelines including but not limited to colonoscopy (referred today), mammogram, breast examinations, and PAP smears. 4. Discussed safe driving, utilization of seat belts, and the importance of refraining from smartphone while driving. 5. Age-appropriate immunizations were discussed including but not limited to Shingles vaccine, COVID, flu vaccine, etc. All questions answered to the patient's satisfaction. Patient demonstrates understanding of diagnosis and treatments discussed. Follow-up in 4 weeks for CPE with lab review, sooner should any questions/concerns arise. Case discussed with collaborating physician Edwin Perez who has reviewed the assessment/plan. Chart, medications, labs, and vital signs reviewed. Dictation completed with the use of [employer] voice recognition software, prone to medical misidentifications and grammatical errors. All errors are unintentional. Although the practitioner does try to identify and correct errors, some may be present. Please do not hesitate to contact the practitioner for clarification. 05/20/2024 Pain of left upper extremity (ICD-10 - M79.602) Enedina is a 53-year-old female with a PMH of overactive bladder that presents today for annual CPE. #Labs: Baseline laboratory evaluation including CBC, CMP, lipid panel, hemoglobin A1c, TSH, and vitamin D drawn 04/11/24, reviewed today. #Elevated cholesterol: Lipid panel drawn 04/11/2024 reveals mildly elevated total cholesterol at 201 and LDL at 117. Patient is educated that lifestyle changes including increasing physical activity and dietary changes can aid in decreasing cholesterol levels. Recommending a diet rich in fruits, vegetables, fiber, and healthy fats such as those found in fish and nuts. Limit sugar, processed foods, fried foods, alcohol, red meat, and unhealthy fats such as trans fats and saturated fat. Consider fish oil supplement. #Left upper extremity pain: Patient presents with concern for left upper arm pain. States she was [place] [facility] after which she felt she strained a muscle. Since experiencing pain and mild weakness. On exam ROM of the left upper extremity appears unaffected. Neurovascular intact. Strength is mildly diminished when compared to the right side. There is also a palpable bump on the anterior surface distal to the AC joint. Discussed DDx which includes muscle strain versus bicep tendon rupture. Distal bicep tendon attachment at the elbow is palpable, however given palpable bulge and mild weakness on exam plan to proceed with MRI without contrast to rule out biceps tendon rupture. Discussed referral to orthopedics, patient would like to await MRI result prior to establishing care. Will send Rx for Celebrex 100 mg twice daily to treat discomfort/inflammati on. Reviewed proper use and side effects including but not limited to GI upset. Patient is encouraged to continue gentle stretching and use of topical ice/heat as needed for pain. #Elevated BP: BP in office elevated at 150/90. Patient reports she has an automatic BP cuff available to her at home. Patient is encouraged to take home BPs twice daily and record measurements. Reviewed proper home BP measuring technique. Plan to follow-up in 3 weeks to assess measurements. Consider antihypertensive should systolic pressures remain consistently greater than 140 or diastolic consistently greater than 90. #Overactive bladder: PMH of uterine fibroids s/p hysterectomy 2013 after which she developed overactive bladder. Takes oxybutynin 5mg once daily with adequate control of symptoms. No currently urinary symptoms including dysuria, increased urinary frequency, hematuria, low back pain, incontinence, etc. Patient seen and examined. Comprehensive discussion was done on the followin. Discussed the importance of a diet rich in fruit, vegetables, legumes and healthy fats. Patient advised to avoid processed food and carbohydrates, added sugars, and saturated/trans fats. When possible, prepare your own meals and avoid fast food. Read nutrition labels - avoid ingredients including high fructose corn syrup and preservatives. Be contentious of daily calorie intake and weight. 2. Discussed the importance of regular physical activity. Recommended a goal 6-10k steps or 30 minutes of walking per day. Discussed the benefit of weight-bearing exercise and strength training with proper body mechanics/safety precautions. Other activities including cycling, hiking, etc. are recommended and encouraged. Patient advised to seek medical attention for any SOB, chest pain, muscle or joint pain associated with exercise. 3. Discussed risks and benefits of age-appropriate screening guidelines including but not limited to colonoscopy (referred today), mammogram, breast examinations, and PAP smears. 4. Discussed safe driving, utilization of seat belts, and the importance of refraining from smartphone while driving. 5. Age-appropriate immunizations were discussed including but not limited to Shingles vaccine, COVID, flu vaccine, etc. All questions answered to the patient's satisfaction. Patient demonstrates understanding of diagnosis and treatments discussed. Follow-up in 4 weeks for CPE with lab review, sooner should any questions/concerns arise. Case discussed with collaborating physician Edwin Perez who has reviewed the assessment/plan. Chart, medications, labs, and vital signs reviewed. Dictation completed with the use of [employer] voice recognition software, prone to medical misidentifications and grammatical errors. All errors are unintentional. Although the practitioner does try to identify and correct errors, some may be present. Please do not hesitate to contact the practitioner for clarification. 05/20/2024 Elevated BP without diagnosis of hypertension (ICD-10 - R03.0) Enedina is a 53-year-old female with a PMH of overactive bladder that presents today for annual CPE. #Labs: Baseline laboratory evaluation including CBC, CMP, lipid panel, hemoglobin A1c, TSH, and vitamin D drawn 04/11/24, reviewed today. #Elevated cholesterol: Lipid panel drawn 04/11/2024 reveals mildly elevated total cholesterol at 201 and LDL at 117. Patient is educated that lifestyle changes including increasing physical activity and dietary changes can aid in decreasing cholesterol levels. Recommending a diet rich in fruits, vegetables, fiber, and healthy fats such as those found in fish and nuts. Limit sugar, processed foods, fried foods, alcohol, red meat, and unhealthy fats such as trans fats and saturated fat. Consider fish oil supplement. #Left upper extremity pain: Patient presents with concern for left upper arm pain. States she was lifting a tote around [facility] after which she felt she strained a muscle. Since experiencing pain and mild weakness. On exam ROM of the left upper extremity appears unaffected. Neurovascular intact. Strength is mildly diminished when compared to the right side. There is also a palpable bump on the anterior surface distal to the AC joint. Discussed DDx which includes muscle strain versus bicep tendon rupture. Distal bicep tendon attachment at the elbow is palpable, however given palpable bulge and mild weakness on exam plan to proceed with MRI without contrast to rule out biceps tendon rupture. Discussed referral to orthopedics, patient would like to await MRI result prior to establishing care. Will send Rx for Celebrex 100 mg twice daily to treat discomfort/inflammati on. Reviewed proper use and side effects including but not limited to GI upset. Patient is encouraged to continue gentle stretching and use of topical ice/heat as needed for pain. #Elevated BP: BP in office elevated at 150/90. Patient reports she has an automatic BP cuff available to her at home. Patient is encouraged to take home BPs twice daily and record measurements. Reviewed proper home BP measuring technique. Plan to follow-up in 3 weeks to assess measurements. Consider antihypertensive should systolic pressures remain consistently greater than 140 or diastolic consistently greater than 90. #Overactive bladder: PMH of uterine fibroids s/p hysterectomy 2013 after which she developed overactive bladder. Takes oxybutynin 5mg once daily with adequate control of symptoms. No currently urinary symptoms including dysuria, increased urinary frequency, hematuria, low back pain, incontinence, etc. Patient seen and examined. Comprehensive discussion was done on the followin. Discussed the importance of a diet rich in fruit, vegetables, legumes and healthy fats. Patient advised to avoid processed food and carbohydrates, added sugars, and saturated/trans fats. When possible, prepare your own meals and avoid fast food. Read nutrition labels - avoid ingredients including high fructose corn syrup and preservatives. Be contentious of daily calorie intake and weight. 2. Discussed the importance of regular physical activity. Recommended a goal 6-10k steps or 30 minutes of walking per day. Discussed the benefit of weight-bearing exercise and strength training with proper body mechanics/safety precautions. Other activities including cycling, hiking, etc. are recommended and encouraged. Patient advised to seek medical attention for any SOB, chest pain, muscle or joint pain associated with exercise. 3. Discussed risks and benefits of age-appropriate screening guidelines including but not limited to colonoscopy (referred today), mammogram, breast examinations, and PAP smears. 4. Discussed safe driving, utilization of seat belts, and the importance of refraining from smartphone while driving. 5. Age-appropriate immunizations were discussed including but not limited to Shingles vaccine, COVID, flu vaccine, etc. All questions answered to the patient's satisfaction. Patient demonstrates understanding of diagnosis and treatments discussed. Follow-up in 4 weeks for CPE with lab review, sooner should any questions/concerns arise. Case discussed with collaborating physician Edwin Perez who has reviewed the assessment/plan. Chart, medications, labs, and vital signs reviewed. Dictation completed with the use of Dragon voice recognition software, prone to medical misidentifications and grammatical errors. All errors are unintentional. Although the practitioner does try to identify and correct errors, some may be present. Please do not hesitate to contact the practitioner for clarification. 05/20/2024 Overactive bladder (ICD-10 - N32.81) Enedina is a 53-year-old female with a PMH of overactive bladder that presents today for annual CPE. #Labs: Baseline laboratory evaluation including CBC, CMP, lipid panel, hemoglobin A1c, TSH, and vitamin D drawn 04/11/24, reviewed today. #Elevated cholesterol: Lipid panel drawn 04/11/2024 reveals mildly elevated total cholesterol at 201 and LDL at 117. Patient is educated that lifestyle changes including increasing physical activity and dietary changes can aid in decreasing cholesterol levels. Recommending a diet rich in fruits, vegetables, fiber, and healthy fats such as those found in fish and nuts. Limit sugar, processed foods, fried foods, alcohol, red meat, and unhealthy fats such as trans fats and saturated fat. Consider fish oil supplement. #Left upper extremity pain: Patient presents with concern for left upper arm pain. States she was lifting a tote around [facility] after which she felt she strained a muscle. Since experiencing pain and mild weakness. On exam ROM of the left upper extremity appears unaffected. Neurovascular intact. Strength is mildly diminished when compared to the right side. There is also a palpable bump on the anterior surface distal to the AC joint. Discussed DDx which includes muscle strain versus bicep tendon rupture. Distal bicep tendon attachment at the elbow is palpable, however given palpable bulge and mild weakness on exam plan to proceed with MRI without contrast to rule out biceps tendon rupture. Discussed referral to orthopedics, patient would like to await MRI result prior to establishing care. Will send Rx for Celebrex 100 mg twice daily to treat discomfort/inflammati on. Reviewed proper use and side effects including but not limited to GI upset. Patient is encouraged to continue gentle stretching and use of topical ice/heat as needed for pain. #Elevated BP: BP in office elevated at 150/90. Patient reports she has an automatic BP cuff available to her at home. Patient is encouraged to take home BPs twice daily and record measurements. Reviewed proper home BP measuring technique. Plan to follow-up in 3 weeks to assess measurements. Consider antihypertensive should systolic pressures remain consistently greater than 140 or diastolic consistently greater than 90. #Overactive bladder: PMH of uterine fibroids s/p hysterectomy 2013 after which she developed overactive bladder. Takes oxybutynin 5mg once daily with adequate control of symptoms. No currently urinary symptoms including dysuria, increased urinary frequency, hematuria, low back pain, incontinence, etc. Patient seen and examined. Comprehensive discussion was done on the followin. Discussed the importance of a diet rich in fruit, vegetables, legumes and healthy fats. Patient advised to avoid processed food and carbohydrates, added sugars, and saturated/trans fats. When possible, prepare your own meals and avoid fast food. Read nutrition labels - avoid ingredients including high fructose corn syrup and preservatives. Be contentious of daily calorie intake and weight. 2. Discussed the importance of regular physical activity. Recommended a goal 6-10k steps or 30 minutes of walking per day. Discussed the benefit of weight-bearing exercise and strength training with proper body mechanics/safety precautions. Other activities including cycling, hiking, etc. are recommended and encouraged. Patient advised to seek medical attention for any SOB, chest pain, muscle or joint pain associated with exercise. 3. Discussed risks and benefits of age-appropriate screening guidelines including but not limited to colonoscopy (referred today), mammogram, breast examinations, and PAP smears. 4. Discussed safe driving, utilization of seat belts, and the importance of refraining from smartphone while driving. 5. Age-appropriate immunizations were discussed including but not limited to Shingles vaccine, COVID, flu vaccine, etc. All questions answered to the patient's satisfaction. Patient demonstrates understanding of diagnosis and treatments discussed. Follow-up in 4 weeks for CPE with lab review, sooner should any questions/concerns arise. Case discussed with collaborating physician Edwin Perez who has reviewed the assessment/plan. Chart, medications, labs, and vital signs reviewed. Dictation completed with the use of [employer] voice recognition software, prone to medical misidentifications and grammatical errors. All errors are unintentional. Although the practitioner does try to identify and correct errors, some may be present. Please do not hesitate to contact the practitioner for clarification. 05/20/2024 Colon cancer screening (ICD-10 - Z12.11) Enedina is a 53-year-old female with a PMH of overactive bladder that presents today for annual CPE. #Labs: Baseline laboratory evaluation including CBC, CMP, lipid panel, hemoglobin A1c, TSH, and vitamin D drawn 04/11/24, reviewed today. #Elevated cholesterol: Lipid panel drawn 04/11/2024 reveals mildly elevated total cholesterol at 201 and LDL at 117. Patient is educated that lifestyle changes including increasing physical activity and dietary changes can aid in decreasing cholesterol levels. Recommending a diet rich in fruits, vegetables, fiber, and healthy fats such as those found in fish and nuts. Limit sugar, processed foods, fried foods, alcohol, red meat, and unhealthy fats such as trans fats and saturated fat. Consider fish oil supplement. #Left upper extremity pain: Patient presents with concern for left upper arm pain. States she was lifting a tote around [facility] after which she felt she strained a muscle. Since experiencing pain and mild weakness. On exam ROM of the left upper extremity appears unaffected. Neurovascular intact. Strength is mildly diminished when compared to the right side. There is also a palpable bump on the anterior surface distal to the AC joint. Discussed DDx which includes muscle strain versus bicep tendon rupture. Distal bicep tendon attachment at the elbow is palpable, however given palpable bulge and mild weakness on exam plan to proceed with MRI without contrast to rule out biceps tendon rupture. Discussed referral to orthopedics, patient would like to await MRI result prior to establishing care. Will send Rx for Celebrex 100 mg twice daily to treat discomfort/inflammati on. Reviewed proper use and side effects including but not limited to GI upset. Patient is encouraged to continue gentle stretching and use of topical ice/heat as needed for pain. #Elevated BP: BP in office elevated at 150/90. Patient reports she has an automatic BP cuff available to her at home. Patient is encouraged to take home BPs twice daily and record measurements. Reviewed proper home BP measuring technique. Plan to follow-up in 3 weeks to assess measurements. Consider antihypertensive should systolic pressures remain consistently greater than 140 or diastolic consistently greater than 90. #Overactive bladder: PMH of uterine fibroids s/p hysterectomy 2013 after which she developed overactive bladder. Takes oxybutynin 5mg once daily with adequate control of symptoms. No currently urinary symptoms including dysuria, increased urinary frequency, hematuria, low back pain, incontinence, etc. Patient seen and examined. Comprehensive discussion was done on the followin. Discussed the importance of a diet rich in fruit, vegetables, legumes and healthy fats. Patient advised to avoid processed food and carbohydrates, added sugars, and saturated/trans fats. When possible, prepare your own meals and avoid fast food. Read nutrition labels - avoid ingredients including high fructose corn syrup and preservatives. Be contentious of daily calorie intake and weight. 2. Discussed the importance of regular physical activity. Recommended a goal 6-10k steps or 30 minutes of walking per day. Discussed the benefit of weight-bearing exercise and strength training with proper body mechanics/safety precautions. Other activities including cycling, hiking, etc. are recommended and encouraged. Patient advised to seek medical attention for any SOB, chest pain, muscle or joint pain associated with exercise. 3. Discussed risks and benefits of age-appropriate screening guidelines including but not limited to colonoscopy (referred today), mammogram, breast examinations, and PAP smears. 4. Discussed safe driving, utilization of seat belts, and the importance of refraining from smartphone while driving. 5. Age-appropriate immunizations were discussed including but not limited to Shingles vaccine, COVID, flu vaccine, etc. All questions answered to the patient's satisfaction. Patient demonstrates understanding of diagnosis and treatments discussed. Follow-up in 4 weeks for CPE with lab review, sooner should any questions/concerns arise. Case discussed with collaborating physician Edwin Perez who has reviewed the assessment/plan. Chart, medications, labs, and vital signs reviewed. Dictation completed with the use of [employer] voice recognition software, prone to medical misidentifications and grammatical errors. All errors are unintentional. Although the practitioner does try to identify and correct errors, some may be present. Please do not hesitate to contact the practitioner for clarification. Plan Of Treatment Pending Test Test Name Order Date MRI : Shoulder, left 05/20/2024 25OH VITAMIN D 04/11/2024 COMPREHENSIVE METABOLIC PANEL 04/11/2024 HEMOGLOBIN A1C 04/11/2024 LIPID PANEL 04/11/2024 TSH WITH REFLEX TO FT4 04/11/2024 CBC with Differential 04/11/2024 Next Appt Details Provider Name:ROB SAVANA Morales, 2025 08:00:00 AM, [address] [facility], [facility] [address], [place], [address], Insurance Providers Payer Name Payer Address Payer Phone Subscriber Number Group Number Insured Name Patient Relationship to Insured Coverage Start Date Coverage End Date [employer] [address] [place] [address] [id number] Enedina Valentine Self - patient is the insured Medical (General) History Medical History History ICD Code History of uterine fibroid Z86.018 Surgical History Surgery Date(Month/Year) total hysterectomy d/t uterine fibroids 2013
--- OUTSIDE RECORDS SUMMARY | 2025-03-05 18:50 | XMS_ITS | Clinical Summary ---
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 Active Active Problems Problem Noted Date Diagnosed Date Dysmenorrhea 04/13/2024 Obstructive sleep apnea 04/06/2018 Overview (04/13/2024): [facility] Home Polysomnogram: Date 04/01/2018; AHI 6, Unclassified [...] s/p treatment, follows with GI. Dr. Brian [facility]. Immunizations Immunization Administration Dates Next Due Tdap Tetanus diptheria [...] s/p treatment, follows with GI. Dr. Brian [facility]. Fibroid uterus DX:Fibroid uteru s Dysmenorrhea [...] Safety Answer Date Record ed Physical Abuse Unrecognized value 07/08/2024 Verbal Abuse Unrecognized value 07/08/2024 Comments No Sex and Gender Information [...] of 2) 2019 Breast Cancer Screening 03/28/2021 03/28/20, 03/07/2018, 10/06/2016 HIV Screening 04/01/2022 Hepatitis C Screening 04/01/2022 Social Influencers of Health Screening 04/01/2022 Depression Screening 04/23/2024 COVID-19 Vaccine (3 - 2024-2 6 season) 2024 10/02/2020, 09/11/2020 Influenza Vaccine (#1) 2024 Cholesterol Screening (Lipid Panel) 04/11/2029 04/11/2024, 03/07/2018 DTaP,Tdap,and Td Vaccines (3 - Td or Tdap) 06/03/2032 06/03/2022, 10/23/2013 Colorectal Cancer Screening: Colonoscopy 07/08/2034 07/08/2024 RSV Immunization Adult Patients (1 - 1-dose 75+ series) 2044 HIB Vaccines Aged Out No longer eligi [...] Maintenance Results * COLONOSCOPY Anesthesia - MAC; [facility] ENDOSCOPY (07/08/2024 2:05 PM EDT) Anatomical Region [...] screening purposes. Narrative 07/08/2024 2:06 PM EDT [facility] GI Patient Name: Enedina Harman Procedure [...] malignant neoplasm of colon CPT copyright 2020 [employer]. All rights reserved. The codes documented in this report are preliminary and upon geodetic surveyor technologist review may be revised to meet current compliance requirements. MD Ron Manjarrez MD 07/08/2024 2:06:25 PM This report has been signed electronically.Ron Teran MD Number of Addenda: 0 Note Initiated On: 07/08/2024 1:43 PM Scope In: Scope Out: Endoscopy Department at [facility] - [address] [place] [id number] Procedure Note Ron Teran MD - 07/08/2024 [facility] GI Patient Name: Enedina Harman Procedure [...] for malignantneoplasm of colon CPT copyright 2020 [employer]. All rights reserved. The codes documented in this report are preliminary and upon geodetic surveyor technologist reviewmay be revised to meet current compliance requirements. MD Ron Manjarrez MD 07/08/2024 2:06:25 PM This report has been signed electronically.Ron Teran MD Number of Addenda: 0 Note Initiated On: 07/08/2024 1:43 PM Scope In: Scope Out: Endoscopy Department at [facility] - [address] [place] [id number] IMPRESSION: - Diverticulosis in the left colon. [...] colonoscopy in 10 years for screening purposes. us Ron Teran MD GI~PROCEDURE ORDERABLES Final R esult * (ABNORMAL) Lipid panel with reflex to direct LDL (04/11/2024 10:42 AM EST) Cholesterol 201(H) 0 - 200 mg/dL LAB CHEMISTRY METHOD 04/11/2024 2:15 PM EST [facility] Triglycerides 65 0 - 150 mg/dL LAB CHEMISTRY METHOD 04/11/2024 2:15 PM EST [facility] HDL 71 >=40 mg/dL LAB CHEMISTRY METHOD 04/11/2024 2:15 PM EST [facility] LDL Calculated 117(H) 0 - 100 mg/dL LAB CHEMISTRY METHOD 04/11/2024 2:15 PM EST [facility] VLDL Cholesterol Deep 13 mg/dL LAB CHEMISTRY METHOD 04/11/2024 2:15 PM EST [facility] Non HDL Chol. (LDL+VLDL) 130 <145 mg/dL LAB CHEMISTRY METHOD 04/11/2024 2:15 PM EST [facility] Chol/HDL Ratio 2.8 0.0 - 4.4 LAB CHEMISTRY METHOD 04/11/2024 2:15 PM EST [facility] Blood Venous blood specimen / Unknown Venipuncture / Unknown 04/11/2024 10:42 AM EST 04/11/2024 12:31 PM EST Kita ALFONSO LAB BLOOD ORDERABLES Fin al Result [facility] [address] [place] [address], * SCR MAMMO BI INCL CAD (03/28/2019 [...] cancer risk category Low (<15%) Procedure Note Elmira Prather MD - 04/11/2022 This is a [...] to Health [place] [phone] [facility] Care Teams City Bus Driver Relationship Specialty Start Date End Date Kita Sepulveda PA [address] [phone] PCP - General 05/21/24
== END 2025-03-05 16:20 | disposition home or self-care (01) ==
LOC: HO.MAMMO 16:19
PROVIDERS: Visit Provider Internal Medicine
DX: Z12.31 Encounter for screening mammogram for malignant neoplasm of breast (principal)
CPT/HCPCS: 77063; 77067

== ENCOUNTER → 2025-03-05 16:30 | Outpatient (BNV) | payer OTHER, SELFPAY | PROVIDERS: Visit Provider Internal Medicine | DX: Z12.31 Encounter for screening mammogram for malignant neoplasm of breast (principal) | CPT/HCPCS: 77063; 77067 ==